=== PATIENT | male | born 1960 | race Caucasian/White ===

== ENCOUNTER 2021-04-12 10:55 | Outpatient (CLI) | payer OTHER, SELFPAY ==
--- NOTE | 2021-04-12 11:02 | XR_ITS ---
WS: [id number] HIP WITH PELVIS RIGHT TECHNIQUE: 3 views of the right hip with pelvis CLINICAL INFORMATION: PAIN IN RIGHT HIP COMPARISON: None. FINDINGS: Advanced osteoarthritis right hip with [id number] articulation superolateral joint space. Associate d subchondral sclerosis in the acetabulum and adjacent femoral head with subchondral cystic change. N o significant flattening. Moderate degenerative narrowing left hip. Normal pubic rami. XR/XR hip RT 2-3V wo/w pel* [id number] IMPRESSION: Advanced osteoarthritis right hip with [id number] articulation superolateral joint space Tonnis classification: grade 3: large cysts in femoral head/acetabulum or joint space obliteration/severe narrowing or severe femoral head deformity vs AVN
--- NOTE | 2021-04-12 11:02 | XR_ITS ---
WS: [id number] LUMBAR SPINE TECHNIQUE: 3 views of the lumbar spine CLINICAL INFORMATION: SACROCOCCYGEAL DISORDER, LOW BACK PAIN COMPARISON: None. FINDINGS: Mild lumbar curve convex left. Osteopenia. 5 nonrib-bearing lumbar vertebral bodies. Chroni c anterior wedging at T12, L1, and L2. Disc space narrowing worse at L1-L2, L2-L3, and L3-4. Slight r etrolisthesis L1 on L2, L2 on L3, L3 on L4. Moderate facet arthropathy L4-L5 and L5-S1. Anterior hype rtrophic changes lower thoracic and upper lumbar spine. XR/XR lumbar spine 2-3V* [id number] IMPRESSION: 1. Mild lumbar curve convex left. No acute appearing compression fractures. 2. Chronic appearing anterior wedging at T12, L1, and L2. 3. Disc space narrowing worse at L1-L2, L2-L3, and L3-4.
== END 2021-04-12 10:56 | disposition home or self-care (01) ==
PROVIDERS: Visit Provider Nurse Practitioner Family
DX: M54.5 Low back pain (principal); M48.54XA Collapsed vertebra, not elsewhere classified, thoracic region, initial encounter for fracture; M48.56XA Collapsed vertebra, not elsewhere classified, lumbar region, initial encounter for fracture; X58.XXXA Exposure to other specified factors, initial encounter; M16.11 Unilateral primary osteoarthritis, right hip
CPT/HCPCS: 72100; 73502

== ENCOUNTER 2023-03-30 08:20 | Outpatient (CLI) | payer BC, SELFPAY ==
--- NOTE | 2023-03-30 08:31 | USR_ITS ---
PROCEDURE INFORMATION: Exam: US Scrotum and Artery or Vein of the Abdominal and/or Reproductive Organs, Limited Scrotum Exam date and time: 03/30/2023 8:55 AM Age: 62 years old Clinical indication: Swelling, testicles or scrotum; Additional info: Swelling R side of scrotum/tenderness TECHNIQUE: Imaging protocol: Real-time ultrasound of the scrotum. Real-time duplex ultrasound scan of the arterial or venous flow with smith scale, color Doppler flow and spectral waveform analysis with image documentation. Limited Duplex exam focused of the scrotum. Duplex exam was performed to evaluate for torsion and other vascular conditions. COMPARISON: CR XR hip RT 2-3V wo/w pel* [id number] 04/12/2021 11:07 AM FINDINGS: Right testicle: Right testicular contour and parenchymal echotexture is normal. There is no mass. There is normal blood flow in the right testicle. The right testicle measures 3.9 x 2.9 x 2.1 cm. Left testicle: Left testicular contour and parenchymal echotexture is normal. There is no mass. There is normal blood flow in the left testicle. The left testicle measures 3.9 x 3.1 x 2.2 cm. Epididymides: There is a 5 mm cyst in the left epididymal head. The right epididymis is unremarkable. Scrotum: Small bilateral hydrocele. There is mild diffuse scrotal skin thickening. No fluid collection. US/US scrotum [id number] IMPRESSION: 1. No evidence of testicular torsion, orchitis, or neoplasm. 2. Small bilateral hydrocele of unknown significance. 3. Mild diffuse scrotal skin thickening is nonspecific and may be related to a systemic process. Cellulitis cannot be excluded.
== END 2023-03-30 08:21 | disposition home or self-care (01) ==
PROVIDERS: Visit Provider Family Medicine
DX: N45.1 Epididymitis (principal); N43.3 Hydrocele, unspecified; R23.4 Changes in skin texture
CPT/HCPCS: 76870

== ENCOUNTER → 2025-02-10 09:49 | Outpatient (BNVA) | payer BC, SELFPAY | PROVIDERS: PCP Family Medicine; Visit Provider Podiatrist Foot & Ankle Surgery | DX: M79.671 Pain in right foot (principal); M21.621 Bunionette of right foot; M76.71 Peroneal tendinitis, right leg; M72.2 Plantar fascial fibromatosis | CPT/HCPCS: 73630 ==